=== PATIENT | female | born 1955 ===

== ENCOUNTER 2020-11-05 09:15 | Outpatient (CLI) | payer OTHER ==
[~2020-11-05 09:15] MED LIST: CEFTIN250 MG PO; PEPCID40 MG PO; ZOFRAN4 MG PO
== END 2020-11-05 10:00 | disposition home or self-care (01) ==
LOC: SONOGRAMA 09:15 → MAMO-SONO 09:30 → SONOGRAMA 10:00
PROVIDERS: ATTEND Internal Medicine Gastroenterology
DX: K76.0 Fatty (change of) liver, not elsewhere classified (principal); R16.0 Hepatomegaly, not elsewhere classified

== ENCOUNTER 2021-11-16 10:18 | Outpatient (CLI) | payer OTHER | END 2021-11-16 10:31 | disposition home or self-care (01) | LOC: RAD 10:18 | PROVIDERS: ATTEND Physical Medicine & Rehabilitation | DX: M25.511 Pain in right shoulder (principal); M25.512 Pain in left shoulder ==

== ENCOUNTER 2022-03-02 13:05 | Outpatient (CLI) | payer OTHER | END 2022-03-02 13:17 | disposition home or self-care (01) | LOC: SONOGRAMA 13:05 | PROVIDERS: ATTEND Specialist | DX: E04.1 Nontoxic single thyroid nodule (principal) ==

== ENCOUNTER 2024-01-02 07:59 | Outpatient (CLI) | payer OTHER | END 2024-01-02 08:08 | disposition home or self-care (01) | LOC: SONOGRAMA 07:59 | PROVIDERS: ATTEND Specialist | DX: E04.1 Nontoxic single thyroid nodule (principal) ==